=== PATIENT | female | born 1935 | race Caucasian/White ===

== ENCOUNTER 2022-05-02 19:49 | Inpatient (IN) | payer MEDICARE, BC ==
[~2022-05-02] VITALS: Ht 160 cm; Wt 84.4 kg
--- NOTE | 2022-05-02 21:20 | NUR ---
COMMODITY LEAD NOT ABLE TO DRAW BLOOD; WILL TRY AGAIN LATER
--- NOTE | 2022-05-02 21:23 | NUR ---
PT TAKEN TO CT VIA NICO
[2022-05-02 22:13] LABS: BASOPHILS # (AUTO) 0.1 K/uL (0.0-0.2); BASOPHILS % (AUTO) 0.8 % (0.0-2.0); EOSINOPHILS % (AUTO) 0.6 % (0.0-6.0); HEMATOCRIT 34 % (33-45); HEMOGLOBIN 11.3 g/dL (11.5-14.8); LYMPHOCYTES # (AUTO) 1.3 K/uL (0.8-4.8); LYMPHOCYTES % (AUTO) 11.4 % (20.0-44.0); MEAN CORPUSCULAR HGB CONC 33 g/dl (31.0-36.0); MEAN CORPUSCULAR VOLUME 93 fL (82-100); MONOCYTES # (AUTO) 0.6 K/uL (0.1-1.30); MONOCYTES % (AUTO) 5.9 % (2.0-12.0); NEUTROPHILS # (AUTO) 8.9 K/uL (1.8-8.9); NEUTROPHILS % (AUTO) 81.3 % (43.0-81.0); PLATELET COUNT (AUTO) 371 K/uL (150-450); RED BLOOD CELL COUNT(AUTO) 3.68 MIL/uL (4.0-5.2); WHITE BLOOD COUNT (AUTO) 10.9 K/uL (4.3-11.0)
[2022-05-02 22:26] LABS: CALCIUM, SERUM 9.2 mg/dL (8.5-10.1); CARBON DIOXIDE 31 mmol/L (21-32); CHLORIDE 102 mmol/L (98-107); CREATININE 1.2 mg/dL (0.6-1.3); GLUCOSE 132 mg/dL (74-106); POTASSIUM 4.6 mmol/L (3.5-5.1); SODIUM SERUM 141 mmol/L (136-145); UREA NITROGEN, BLOOD 43 mg/dL (7-18)
[2022-05-02 22:30] LABS: ALANINE AMINOTRANSFERASE 17 U/L (12-78); ALBUMIN 3.2 g/dL (3.4-5.0); ALKALINE PHOSPHATASE 82 U/L (46-116); ASPARTATE AMINOTRANSFERASE 17 U/L (15-37); BILIRUBIN,DIRECT 0.1 mg/dL (0.0-0.2); BILIRUBIN,TOTAL 0.4 mg/dL (0.2-1.0); LIPASE 193 U/L (73-393); TOTAL PROTEIN, SERUM 7.3 g/dL (6.4-8.2)
--- NOTE | 2022-05-02 22:30 | NUR ---
URINE COLLECTED AND SENT TO LAB
[2022-05-02] MEDS ORDERED: LIDOCAINE VISCOUS 2% UD 15 ML UDC ONE (22:37)
--- NOTE | 2022-05-02 22:58 | NUR ---
UPDATE GIVEN TO DAUGHTER DIDIER MOODY
--- NOTE | 2022-05-02 22:59 | NUR ---
DR DIANA PAGED PER LORNE SKINNER
--- NOTE | 2022-05-02 23:00 | NUR ---
COVID ANTIGEN SWAB COLLECTED AND SENT TO LAB
--- NOTE | 2022-05-02 23:02 | NUR ---
INSERTED NGT 14FR R NARE AT 55CM; CONFIRMED PLACEMENT VIA ASPIRATION AND AUSCULTATION AWAITING CXR CONFIRMATION.
--- NOTE | 2022-05-02 23:03 | NUR ---
ATTEMPTED IV ACCCESS WITH NO SUCCESS. CHARGE NURSE AWARE
[2022-05-02] MEDS ORDERED: ONDANSETRON HCL/PF 4 MG/2 ML VIAL IVP ONE (23:30)
[2022-05-02] MEDS ORDERED: IV NS 0.9% 1,000 ML BAG IV ONE (23:30)
--- NOTE | 2022-05-02 23:47 | NUR ---
DAMARIS RODRIGUEZ DOUGHNUT MACHINE OPERATOR AT PT'S BEDSIDE INSERTING MIDLINE TO VICENTE #20G S/L
[2022-05-03] MEDS ORDERED: MAG HYDROX/AL HYDROX/SIMETH 30 ML UDC PO PRN
[2022-05-03] MEDS ORDERED: Z GUARD REMEDY 4 OZ OINT TP PRN
[2022-05-03] MEDS ORDERED: ONDANSETRON HCL/PF 4 MG/2 ML VIAL IVP PRN
[2022-05-03] MEDS ORDERED: MAGNESIUM HYDROXIDE 30 ML UDC PO PRN
[2022-05-03 00:03] LABS: BILIRUBIN,URINE NEGATIVE (NEGATIVE); COLOR,URINE YELLOW (YELLOW); LEUKOCYTE ESTERASE ,URINE NEGATIVE (NEGATIVE); NITRITE, URINE NEGATIVE (NEGATIVE); PH,URINE 7.5 (5.0-8.0); PROTEIN,URINE NEGATIVE (NEGATIVE); UGLUCOSE NEGATIVE (NEGATIVE); UROBILINOGEN,URINE 0.2 EU/dL (0.2)
--- NOTE | 2022-05-03 00:36 | NUR ---
PT SATTING 88% WHEN SLEEPING ON R/A. PUT ON O2 2LPM VIA N/C NOW SATTING 95%.
[2022-05-03] MEDS ORDERED: MORPHINE SULFATE INJ 2 MG/ML DISP.SYRIN ONE (04:03)
[2022-05-03] MEDS: MORPHINE SULFATE INJ 2 MG/ML DISP.SYRIN IV PRN ×2 (04:08→20:21)
--- NOTE | 2022-05-03 05:52 | NUR ---
BLOOD COLLECTED AND GIVEN TO LAB
[2022-05-03 07:01] LABS: CALCIUM, SERUM 8.6 mg/dL (8.5-10.1); CREATININE 1.1 mg/dL (0.6-1.3); MAGNESIUM 2.3 mg/dL (1.8-2.4); PHOSPHORUS 4.9 mg/dL (2.5-4.9); POTASSIUM 4.5 mmol/L (3.5-5.1)
[2022-05-03] MEDS ORDERED: PREG50CA PO (07:36)
[2022-05-03] MEDS ORDERED: APIX2.5T PO (07:36)
[2022-05-03] MEDS ORDERED: MULT-439 PO (07:36)
[2022-05-03] MEDS ORDERED: LACT10SO3 PO (07:36)
[2022-05-03] MEDS ORDERED: CELE100C PO (07:36)
[2022-05-03] MEDS ORDERED: CALC-34 PO (07:36)
[2022-05-03] MEDS ORDERED: SENN-175 PO (07:36)
[2022-05-03] MEDS ORDERED: LACT1TAB13 PO (07:36)
[2022-05-03] MEDS ORDERED: BISA10SU11 RC (07:36)
[2022-05-03] MEDS ORDERED: ASCO500C17 PO (07:36)
[2022-05-03] MEDS ORDERED: FLORADIX PO (07:36)
[2022-05-03] MEDS ORDERED: NA P133E RC (07:36)
[2022-05-03] MEDS ORDERED: PHEN1SUP RC (07:36)
[2022-05-03] MEDS ORDERED: FESO4TAB PO (07:36)
[2022-05-03] MEDS ORDERED: CEPH500C2 PO (07:36)
[2022-05-03] MEDS ORDERED: DOCU-141 PO (07:36)
[2022-05-03] MEDS ORDERED: IPRA0.2S49 IH (07:36)
[2022-05-03] MEDS ORDERED: METF-440 PO (07:36)
--- NOTE | 2022-05-03 07:41 | NUR ---
BED 312-1
[2022-05-03] MEDS ORDERED: HEPARIN SODIUM, PORCINE 5000 UNITS/1 ML VIAL SQ SCH (09:00)
[2022-05-03] MEDS ORDERED: DIATR MEGLU/DIATRIZOATE SODIUM 120 ML BOTTLE (GASTROGRAPHIN) ONE (09:16)
[2022-05-03 09:55] LABS: BASOPHILS % (AUTO) 0.2 % (0.0-2.0); HEMATOCRIT 33 % (33-45); HEMOGLOBIN 10.9 g/dL (11.5-14.8); LYMPHOCYTES # (AUTO) 1.1 K/uL (0.8-4.8); LYMPHOCYTES % (AUTO) 12.6 % (20.0-44.0); MEAN CORPUSCULAR HGB CONC 33 g/dl (31.0-36.0); MEAN CORPUSCULAR VOLUME 95 fL (82-100); MONOCYTES # (AUTO) 0.7 K/uL (0.1-1.30); MONOCYTES % (AUTO) 7.5 % (2.0-12.0); NEUTROPHILS # (AUTO) 6.9 K/uL (1.8-8.9); NEUTROPHILS % (AUTO) 78.7 % (43.0-81.0); PLATELET COUNT (AUTO) 354 K/uL (150-450); WHITE BLOOD COUNT (AUTO) 8.8 K/uL (4.3-11.0)
--- NOTE | 2022-05-03 12:30 | NUR ---
MS SKIDDER LOADER NOTES RECEIVED PATIENT FORM ER VIA LISA , C/C OF ABDOMINAL PAIN WITH N/V AND WITH DIAGNOSIS OF PARTIAL SMALL BOWEL OBSTRUCTION , ASSISTED BACK TO BED , ALERT AND ORIENTED X4 AND ABLE TO MAKE NEEDS KNOWN, KEPT COMFORTBALE TO BED , V/S TAKEN AND RECORDED BP 126/58, 76 , RR 18 TEMP 97.2, AND O2 @ 95% ROOM AIR , WITH IV ACCESS OF ML G18 RUNNING WITH LR @75ML /HR .NO SOB OR DISTRESS NOTED , NO C/O OF PAIN AND DISCOMFORT , WITH NGT FOR DRAINAGE VIA GRAVITY WITH BROWNISH DISCHARGE NOTED , BODY ASSESSMENT DONE AND PHOTOS TAKEN , NOTED WITH LEFT KNEE SURGICAL INCISION , PER PATIENT S/P TOTL KNEE ARTHOPALSTY ON , AND ALL BELONGINGS WERE ACCOUNTED FOR , SAFETY MEASURES PROVIDED , SIDERALIS X 2 LOCKED AND AT LOWEST POSITION , WILL CONTINUE TO MONITOR FOR ANY CHANGES ,
[2022-05-03 16:06] VITALS: BP 124/52
[2022-05-03] MEDS: IV LR 1000 ML 1,000 ML IV PRN (17:55)
--- NOTE | 2022-05-03 18:31 | NUR ---
MS RN CLOSING NOTES PATIENT ON BED AWAKE A/O X4 , VERBALLY RESPONSIVE ROOM AIR , WITH IV ACCESS OF ML G18 RUNNING WITH LR @75ML /HR .NO SOB OR DISTRESS NOTED , NO C/O OF PAIN AND DISCOMFORT , WITH NGT FOR DRAINAGE VIA GRAVITY WITH BROWNISH DISCHARGE NOTED , , NOTED WITH LEFT KNEE SURGICAL INCISION , DR JOSEPH AWARE ABOUT THE RESULT OF SMALL BOWEL THROUGH AND WITH ORDER TO HAVE CLEAR LIQUID DIET , NOTED WITH BM X 2 LARGE AMOUNT , SAFETY MEASURES PROVIDED , SIDE RAILS X 2 LOCKED AND AT LOWEST POSITION , WILL ENDORSED TO NEXT SHIFT
--- NOTE | 2022-05-03 19:30 | NUR ---
MS RN OPENING NOTE RECEIVED PT AWAKE IN BED. A/O X4 AND ABLE TO MAKE NEEDS KNOWN. PT STABLE ON ROOM AIR. NO SOB OR S/S OF RESPIRATORY DISTRESS. BREATHING EVEN AND UNLABORED. IV ACCESS VICENTE ML RUNNING LR @ 75 ML/HR, INTACT AND PATENT. WITH NG TUBE CONNECTED TO INTERMITTENT SUCTION. SAFETY PRECAUTIONS IN PLACE. BED IN LOWEST LOCKED POSITION, HOB ELEVATED, SIDE RAILS UP X2, AND CALL LIGHT AND TABLE WITHIN REACH. ALL NEEDS MET AT THIS TIME.
[2022-05-03 20:00] VITALS: BP 133/51
[2022-05-03] MEDS ORDERED: BISACODYL SUPP (10 MG) 10 MG/SUPP.RECT SUPP.RECT RC PRN (22:00)
--- NOTE | 2022-05-03 22:00 | NUR ---
RN NOTE BRODY WEBER COMPLETED MED RECONCILIATION AT THIS TIME. CLARIFIED MED ROUTE ORDER WITH NEW ORDER TO DC LOW INTERMITTENT SUCTION SO THAT PT MAY TAKE MEDICATION. DISCONNECTED PT FROM SUCTION AT THIS TIME. NO COMPLAINTS OF PAIN OR DISCOMFORT. NO COMPLAINTS OF NAUSEA. ALL NEEDS MET AT THIS TIME.
[2022-05-03] MEDS: CEPHALEXIN MONOHYDRATE 500 MG CAPSULE PO SCH (22:42)
[2022-05-04] MEDS: PREGABALIN 25 MG CAPSULE PO SCH ×4 (05:55→17:17)
--- NOTE | 2022-05-04 05:57 | NUR ---
RN NOTE PATIENT REFUSED LYRICA X2 AND SAID THAT SHE GETS RASHES WHENEVER SHE TAKES IT.
--- NOTE | 2022-05-04 06:10 | NUR ---
RN NOTE PT REFUSING TO GET LABS DRAWN. TRIED TO EDUCATE PT BUT PT GOT AGITATED AND DID NOT WANT TO LISTEN. SHE STATED "I AM TIRED OF BEING POKED. I AM ANEMIC AND CANNOT GIVE ANYMORE BLOOD". TRIED TO EXPLAIN THE IMPORTANCE OF LAB DRAW BUT PT ADAMANTLY REFUSED.
--- NOTE | 2022-05-04 07:09 | NUR ---
MS RN CLOSING NOTE PATIENT IN BED, ASLEEP BUT EASY TO AROUSE AND RESPONSIVE. A/O X4. ABLE TO MAKE NEEDS KNOWN. PT STABLE ON ROOM AIR. NO SOB OR S/S OF RESPIRATORY DISTRESS. BREATHING EVEN AND UNLABORED. IV ACCESS VICENTE ML RUNNING LR @ 75 ML/HR, INTACT AND PATENT. KEPT ON NG TUBE UNTIL SEEN BY GI MD. MEDICATED ORDERED. MAINTAINED ON CLEAR DIET. SAFETY PRECAUTIONS IN PLACE. BED IN LOWEST LOCKED POSITION, HOB ELEVATED, SIDE RAILS UP X2, AND CALL LIGHT AND TABLE WITHIN REACH. ALL NEEDS ATTENDED.
--- NOTE | 2022-05-04 07:20 | NUR ---
ms rn received on bed, awake,alert,oriented x4,not in any form of distress, respirations even and unlabored,no sob noted, lungs are diminished,abdomen soft,positive bowel sounds, denies pian at this time, ngt intact/inplace, suction off, will monitor patient.
[2022-05-04] MEDS: IPRATROPIUM NEB FS 0.5 MG/2.5 ML AMPUL.NEB IH SCH ×2 (07:55→14:27)
[2022-05-04] MEDS ORDERED: METFORMIN 500 MG TABLET PO SCH (08:00)
--- NOTE | 2022-05-04 08:13 | NUR ---
WOUND CARE CONSULT: PT PRESENTS WITH CLOSED INCISION TO LEFT KNEE WITH DRY DRESSING IN PLACE, PRESENT ON ADMISSION. PT STATES WILL FOLLOW UP WITH HER SURGEON IN [place] AFTER DISCHARGE FROM HOSPITAL. WILL SEE PRN.
[2022-05-04] MEDS: CALCIUM CARB 250MG /VITAMIN D 1 UDTAB PO SCH ×2 (08:45→17:17)
[2022-05-04] MEDS: OXYBUTYNIN CHLORIDE 5 MG TABLET PO SCH ×2 (08:45→17:17)
[2022-05-04] MEDS: PANTOPRAZOLE 40 MG VIAL IV SCH ×2 (08:45→08:55)
[2022-05-04] MEDS: DOCUSATE SODIUM 100 MG CAPSULE PO SCH ×2 (08:46→17:17)
[2022-05-04] MEDS: CEPHALEXIN MONOHYDRATE 500 MG CAPSULE PO SCH ×3 (08:46→17:17)
[2022-05-04] MEDS: CELECOXIB 100 MG CAPSULE PO SCH ×2 (08:46→17:17)
[2022-05-04] MEDS: ASCORBIC ACID 500 MG TABLET PO SCH ×2 (08:46→17:17)
[2022-05-04] MEDS: LACTULOSE 10 G/15 ML UDC (PYXIS) PO SCH ×2 (08:56→17:00)
[2022-05-04] MEDS ORDERED: MULTIVIT W/MINERALS 1 TAB TABLET PO SCH (09:00)
[2022-05-04] MEDS ORDERED: APIXABAN 2.5 MG TABLET PO SCH ×2 (09:00→17:00)
[2022-05-04] MEDS ORDERED: FLORADIX PO SCH (09:00)
[2022-05-04] MEDS ORDERED: SENNOSIDES 8.6 MG TABLET PO SCH (09:00)
[2022-05-04] MEDS ORDERED: LACTOBACILLUS RHAMNOSUS GG 1 EACH CAP.SPRINK PO SCH (09:00)
--- NOTE | 2022-05-04 09:00 | NUR ---
ms rn on clear liquids, due meds given.
[2022-05-04 09:29] VITALS: BP 158/84
[2022-05-04] MEDS: IV LR 1000 ML 1,000 ML IV PRN (10:28)
[2022-05-04] MEDS: MORPHINE SULFATE INJ 2 MG/ML DISP.SYRIN IV PRN (11:24)
--- NOTE | 2022-05-04 12:30 | NUR ---
ms rn wa seen by joe deutsch/ jose manuel made and carried out.
[2022-05-04 16:13] VITALS: BP 120/54
--- NOTE | 2022-05-04 16:29 | NUR ---
ms rn d/c order put by [place], will monitor patient.
--- NOTE | 2022-05-04 17:25 | NUR ---
ms rn ready to be discharge, refused to take picture of old incisions, patient transferred to [facility],all needs attended.
--- NOTE | 2022-05-04 18:30 | NUR ---
ms maxwell chowdary called back, spoke to Alexus arreola, gave report.
[2022-05-05] MEDS ORDERED: MULTIVIT W/MINERALS 1 TAB TABLET PO SCH (09:00)
[2022-05-05] MEDS ORDERED: PANTOPRAZOLE 40 MG/PACK PACK PO SCH (09:00)
== END 2022-05-04 17:53 | DRG 390 ==
LOC: ER 19:58 → TRANSITION 05-03 00:06 → MED 05-03 07:59
PROVIDERS: ADMIT Nurse Practitioner Family; ATTEND Registered Nurse
PROC: 05HB33Z Insertion of Infusion Device into Right Basilic Vein, Percutaneous Approach (ICD-10-PCS; principal; 2022-05-02)
DX: K56.600 Partial intestinal obstruction, unspecified as to cause (principal); E11.9 Type 2 diabetes mellitus without complications; D64.9 Anemia, unspecified; K21.9 Gastro-esophageal reflux disease without esophagitis; Z86.718 Personal history of other venous thrombosis and embolism; Z20.822 Contact with and (suspected) exposure to COVID-19; I10 Essential (primary) hypertension; F09 Unspecified mental disorder due to known physiological condition; M19.90 Unspecified osteoarthritis, unspecified site; M48.00 Spinal stenosis, site unspecified; Z96.652 Presence of left artificial knee joint; Z88.6 Allergy status to analgesic agent; Z88.5 Allergy status to narcotic agent; Z91.013 Allergy to seafood; Z88.8 Allergy status to other drugs, medicaments and biological substances; Z91.048 Other nonmedicinal substance allergy status; Z79.01 Long term (current) use of anticoagulants; Z79.51 Long term (current) use of inhaled steroids; Z79.899 Other long term (current) drug therapy; D63.8 Anemia in other chronic diseases classified elsewhere; G47.33 Obstructive sleep apnea (adult) (pediatric); G89.4 Chronic pain syndrome; K76.0 Fatty (change of) liver, not elsewhere classified; Z79.84 Long term (current) use of oral hypoglycemic drugs; Z80.6 Family history of leukemia; K80.20 Calculus of gallbladder without cholecystitis without obstruction
CPT/HCPCS: 36410; 36415; 71045-TC; 74018; 74250-TC; 80048-TC; 80076-TC; 83690-TC; 83735-TC; 84100-TC; 84484-TC; 85025-TC; 85730-TC; 87081-TC; 94799-TC; 97112-TC; 97530-TC; A6403; C9113; G0378; J1644; J2270; J2405; J3490; J7030; J7060; J7070; J7120; Q9963